=== PATIENT | female | born 1945 | race Caucasian/White ===

== ENCOUNTER 2016-07-02 15:51 | Observation (INO) | payer MEDICARE ==
--- NOTE | ~2016-07-02 | HP ---
Unit #: [id number] #: [id number] Patient: KARIN SCHMIDT [id number] [address] [address] [id number] MR#: [id number] NAME: KARIN SCHMIDT ROOM: 461 Age: 70 Sex: F Admission Date: 07/02/2016 : 1945 Attending Physician: Tracee Colin M.D. Primary Care Physician: Christina Crabtree M.D. HISTORY AND PHYSICAL CHIEF COMPLAINT Shortness of breath. HISTORY OF PRESENT ILLNESS A 70 year old with a history of chronic anemia admitted because of shortness of breath; according to her, started four to five days prior to the admission. She is short of breath mostly on ambulation and also at rest. Also she complains of tightness. Also noticed that her skin is pale. No active bleeding. No nausea. No vomiting. No diarrhea. No constipation. No chest pain. She has shortness of breath mostly on ambulation, also at rest. No bleeding in stool or urine. No dizziness. No passing out. PAST MEDICAL HISTORY 1. History of anemia. She is following Dr. Hutchinson for it. Patient usually receives iron and likely Procrit injections as an outpatient. She had EGD and colonoscopy which were negative. She is going to have bone marrow biopsy as an outpatient soon. 2. History of diabetes mellitus type 2, on metformin. 3. Hypertension. 4. History of coronary artery disease, status post CABG in 1999. 5. History of cervical cancer, status post hysterectomy. 6. Ear infection x3. 7. 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 FAMILY HISTORY Positive for hypertension. ALLERGIES Diazepam and valium. SOCIAL HISTORY Quit smoking in July 2015, no alcohol, no drugs. CURRENT MEDICATION 1. Aspirin 325 p.o. daily. 2. Folic acid 1 mg daily. 3. Lasix 20 p.o. daily. 4. Potassium 10 mEq p.o. daily. 5. Metformin 1000 p.o. daily. 6. Simvastatin 40 daily. 7. Valsartan 160 p.o. daily. Unit #: [id number] #: [id number] Patient: KARIN SCHMIDT REVIEW OF SYSTEMS No headache. Complaining of eye issues for which she has an appointment with the eye doctor this Thursday which is two days from now. I talked to her and she said she wants to see her eye doctor. She does not want any workup in the hospital. She denies having any leg swelling. I reviewed 12-point systems with her which are negative except as in HPI. PHYSICAL EXAMINATION VITAL SIGNS: Temperature 98.9. Pulse 90. Respirations 16. Blood pressure 109/55. Saturation 97% at room air. GENERAL EXAMINATION: A 70 year old lying in bed, not in acute distress, able to provide history, alert and oriented x3. HEENT: Pupils equally reactive to light and accommodation. Pallor present. Dry mucosa present. NECK: Supple. HEART: S1, S2 heard. Regular rhythm. No murmurs. SKIN: No jaundice. Pallor present. No rash. LUNGS: Clear to auscultation. No crackles. No rhonchi. ABDOMEN: Soft, nontender. No hepatosplenomegaly. EXTREMITIES: No pedal edema. NEUROLOGICAL: Nonfocal. DIAGNOSTIC STUDIES LABORATORY DATA: In Dr. Hutchinson's office shows WBC 11.0, hemoglobin 6.2, hematocrit 20, platelets 366. Patient is a direct admit. She came from Dr. Hutchinson's office. ASSESSMENT AND PLAN 1. Anemia, [id number], iron deficiency, no active bleeding: Patient will get two units of packed RBCs and check a CBC in the morning. She did have a GI workup in the past which is negative. She will follow with Dr. Hutchinson as an outpatient. 2. Diabetes mellitus type 2: Hold metformin. Start sliding scale. 3. Hypertension, currently controlled: Continue with her home medications. 4. Coronary artery disease, stable: Continue with aspirin and simvastatin. 5. Patient is a direct admit from Dr. Hutchinson's office for blood transfusion and symptomatic anemia. Patient will get transfusion and CBC to be checked in the morning. Dictated by Telly Martin TD: 07/02/2016 19:04 JOB #: [id number] Unit #: [id number] #: [id number] Patient: LINKER,KARIN HISTORY AND PHYSICAL Page 1 of 1 X Lian Huizar MD X HISTORY AND PHYSICAL
[~2016-07-02 15:51] MED LIST: ALBUTEROL17 GM INH; ALLEGRA ALLERG180 MG PO; KLOR-CON SPRIN10 MEQ PO; METOPROLOL SUCC25 MG PO; MIRALAX17 GM PO; PANTOPRAZOLE SO40 MG PO
[2016-07-02 18:41] LABS: ALBUMIN SERUM 4.4 g/dL (3.5-5.0); BILIRUBIN,TOTAL 0.7 mg/dL (0.2-2.0); BUN/CREATININE RATIO 24.28; CALCIUM SERUM 9.4 mg/dL (8.4-10.2); CREATININE SERUM 0.7 mg/dL (0.6-1.4); GLOM FILT RATE Estimated 88.4 mL/min (>60); POTASSIUM 4.5 mmol/L (3.5-5.1); PROTEIN TOTAL SERUM 7.7 g/dL (6.0-8.3)
[2016-07-03 05:50] LABS: HEMATOCRIT 27.8 % (35.0-45.0); HEMOGLOBIN 8.6 gm/dL (12.0-16.0); MEAN CELL VOLUME 81.6 FL (83-96); MEAN CORPUSCULAR HEMOGLOBIN 25.3 PG (28-34); MEAN PLATELET VOLUME 9.3 FL (6.5-11.5); RED BLOOD COUNT 3.4 X10e (3.90-5.30); RED CELL DISTRIBUTION WIDTH 20.2 % (11.0-15.5); WHITE BLOOD COUNT 10.9 X10e3 (4.0-10.5)
[2016-07-03 07:16] LABS: CALCIUM SERUM 9.1 mg/dL (8.4-10.2); CREATININE SERUM 0.5 mg/dL (0.6-1.4); GLOM FILT RATE Estimated 98.8 mL/min (>60); POTASSIUM 4.2 mmol/L (3.5-5.1)
[2016-07-11] MEDS ORDERED: ASPIRIN ENTERI325 M1 PO (10:20)
[2016-07-11] MEDS ORDERED: FOLIC ACID1 MG PO (10:24)
[2016-07-11] MEDS ORDERED: 24 HOUR ALLER15.8 ML INH (10:24)
[2016-07-11] MEDS ORDERED: LASIX20 MG PO (10:25)
[2016-07-11] MEDS ORDERED: METFORMIN HCL500 M4 PO (10:27)
[2016-07-11] MEDS ORDERED: DIOVAN160 MG PO (10:34)
[2016-07-11] MEDS ORDERED: SIMVASTATIN40 MG PO (10:34)
[2016-07-11] MEDS ORDERED: OMEPRAZOLE20 M1 PO (12:04)
[2016-07-11] MEDS ORDERED: KLOR-CON SPRIN10 MEQ PO (18:36)
== END 2016-07-03 12:45 | disposition home or self-care (01) ==
LOC: C4C 15:51 → UNDOADMOB 15:51 → C4C 15:52
PROVIDERS: Internal Medicine
DX: D50.9 Iron deficiency anemia, unspecified (principal); E11.9 Type 2 diabetes mellitus without complications; Z79.84 Long term (current) use of oral hypoglycemic drugs; I10 Essential (primary) hypertension; I25.10 Atherosclerotic heart disease of native coronary artery without angina pectoris; Z79.82 Long term (current) use of aspirin; Z95.1 Presence of aortocoronary bypass graft; Z85.41 Personal history of malignant neoplasm of cervix uteri; Z90.710 Acquired absence of both cervix and uterus; Z87.891 Personal history of nicotine dependence; Z86.11 Personal history of tuberculosis; Z88.8 Allergy status to other drugs, medicaments and biological substances
CPT/HCPCS: 36430; 80048; 80053; 82947; 85027; 86850; 86900; 86901; 86923; G0378; J1815; J1940; P9016

== ENCOUNTER → 2016-07-11 | Outpatient (CLI) | payer MEDICARE ==
[~2016-07-11] MED LIST changes: +24 HOUR ALLER15.8 ML INH; +ASPIRIN ENTERI325 M1 PO; +DIOVAN160 MG PO; +FOLIC ACID1 MG PO; +LASIX20 MG PO; +METFORMIN HCL500 M4 PO; +OMEPRAZOLE20 M1 PO; +SIMVASTATIN40 MG PO
== END | disposition home or self-care (01) ==
LOC: CSSDAY 09:37
DX: D50.9 Iron deficiency anemia, unspecified (principal); Z79.899 Other long term (current) drug therapy; Z88.5 Allergy status to narcotic agent
CPT/HCPCS: 96374; Q0138

== ENCOUNTER → 2016-07-18 | Outpatient (CLI) | payer MEDICARE | END | disposition home or self-care (01) | LOC: CSSDAY 09:46 | DX: D50.9 Iron deficiency anemia, unspecified (principal); K90.9 Intestinal malabsorption, unspecified | CPT/HCPCS: 96374; Q0138 ==